=== PATIENT | male | born 1945 | race Caucasian/White ===

== ENCOUNTER 2018-05-29 12:59 | Inpatient (IN) ==
[2018-05-29] MEDS ORDERED: Morphine Sulfate Inj 2 MG/ML Vial ONE (13:07)
[2018-05-29 13:25] LABS: Baso # (Auto) 0.1 th/mm3 (0.0-0.2); Baso % (Auto) 0.8 % (0.0-2.0); Eos # (Auto) 0.3 th/mm3 (0.0-0.4); Eos % (Auto) 2.5 % (0.0-4.0); Hematocrit 43.3 % (39.0-51.0); Hemoglobin 15.1 gm/dL (13.0-17.0); Lymph # (Auto) 2.2 th/mm3 (1.0-4.8); Lymph % (Auto) 17.1 % (9.0-44.0); Mean Corpuscular HGB Conc 34.9 % (32.0-36.0); Mean Corpuscular Hemoglobin 31.6 pg (27.0-34.0); Mean Corpuscular Volume 90.5 fL (80.0-100.0); Mean Platelet Volume 8.1 fL (7.0-11.0); Mono # (Auto) 0.6 th/mm3 (0.0-0.9); Mono % (Auto) 4.7 % (0.0-8.0); Neut # (Auto) 9.8 th/mm3 (1.8-7.7); Neut % (Auto) 74.9 % (16.0-70.0); Platelet Count 179 th/mm3 (150-450); Red Blood Count 4.78 mil/mm3 (4.50-5.90); Red Cell Distribution Width 13.3 % (11.6-17.2); White Blood Count 13.1 th/mm3 (4.0-11.0)
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
--- NOTE | 2018-05-29 13:34 | XR ---
EXAM DATE: 05/29/2018 1:23 PM EDT AGE/SEX: 89 years / Male INDICATIONS: Trauma pinned under vehicle after it fell off [place]. Right side pain. CLINICAL DATA: This is the patient's initial encounter. Patient reports that signs and symptoms have been present for 1 day and indicates a pain score of 10/10. MEDICAL/SURGICAL HISTORY: None. None. COMPARISON: No prior exams available for comparison. FINDINGS: Lungs are well-expanded and clear. There is no evidence of pneumothorax. Heart and mediastinal structures are unremarkable. Fractured right clavicle is noted. Osseous structures otherwise appear intact. CONCLUSION: No evidence of acute cardiopulmonary process. Fractured right clavicle. Electronically signed by: Fortunato Lainez MD 05/29/2018 1:32 PM EDT
--- NOTE | 2018-05-29 13:35 | CT ---
EXAM DATE: 05/29/2018 1:31 PM EDT AGE/SEX: 89 years / Male INDICATIONS: Trauma alert, car fell on patient while working underneath. CLINICAL DATA: This is the patient's initial encounter. Patient reports that signs and symptoms have been present for 1 day and indicates a pain score of 4/10. MEDICAL/SURGICAL HISTORY: . unable to obtain . unable to obtain RADIATION DOSE: 56.35 CTDI (mGy) COMPARISON: No prior exams available for comparison. TECHNIQUE: CT of the head without contrast. Using automated exposure control and adjustment of the mA and/or kV according to patient size, radiation dose was kept as low as reasonably achievable to ob tain optimal diagnostic quality images. DICOM format image data is available electronically for revi ew and comparison. FINDINGS: Cerebrum: The ventricles are normal for age. No evidence of midline shift, mass lesion, hemorrhage or acute infarction. No extraaxial fluid collections are seen. Posterior Fossa: The cerebellum and brainstem are intact. The 4th ventricle is midline. The cerebe llopontine angle is unremarkable. Extracranial: The visualized portion of the orbits is intact. Skull: The calvaria is intact. No evidence of skull fracture. CONCLUSION: 1. Negative for acute process Electronically signed by: Ravi Hoffman MD 05/29/2018 1:34 PM EDT
[2018-05-29 13:40] LABS: Activated Partial Thrombo Time 25.3 sec (24.3-30.1); INR 1.1 Ratio; Prothrombin Time 11.1 sec (9.8-11.6)
--- NOTE | 2018-05-29 13:49 | CT ---
EXAM DATE: 05/29/2018 1:33 PM EDT AGE/SEX: 89 years / Male INDICATIONS: Trauma alert, car fell on patient while working underneath. CLINICAL DATA: This is the patient's initial encounter. Patient reports that signs and symptoms have been present for 1 day and indicates a pain score of Nonresponsive. MEDICAL/SURGICAL HISTORY: Non-responsive. Non-responsive. RADIATION DOSE: 25.25 CTDI (mGy) COMPARISON: No prior exams available for comparison. TECHNIQUE: Contiguous axial images were obtained using helical multirow detector technique. The vol umetric data was post-processed with multiplanar reconstruction in oblique axial, sagittal, and coron al planes. Using automated exposure control and adjustment of the mA and/or kV according to patient s ize, radiation dose was kept as low as reasonably achievable to obtain optimal diagnostic quality lindsey ges. DICOM format image data is available electronically for review and comparison. FINDINGS: ALIGNMENT: Vertebral bodies are satisfactorily aligned without evidence of listhesis. FACET AND OSSEOUS STRUCTURES: Vertebral body height is well-maintained. There is no evidence of acut e fracture, or destructive changes. There is no significant facet arthropathy. INTERVERTEBRAL DISC SPACES: [id number] degenerative disc disease is noted. There is disc space narrowing with marginal spondylosis at C4-5 and C5-6. At C4-5 there is disc space narrowing with broad-based disc osteophyte complex. There is anterior epi dural effacement and moderate right foraminal stenosis. NEUROLOGIC STRUCTURES: The spinal cord appears normal without compression. CONCLUSION: 1. No evidence of acute traumatic soft tissue or bony injury. 2. Degenerative disc disease at C4-5 and C5-6. 3. Disc osteophyte complex at C4-5 with anterior epidural effacement and moderate right foraminal st enosis. 4. Normal-appearing spinal cord. Electronically signed by: Fortunato Lainez MD 05/29/2018 1:48 PM EDT
--- NOTE | 2018-05-29 13:52 | CT ---
EXAM DATE: 05/29/2018 1:46 PM EDT AGE/SEX: 89 years / Male INDICATIONS: Trauma alert, car fell on patient while working underneath. CLINICAL DATA: This is the patient's initial encounter. Patient reports that signs and symptoms have been present for 1 day and indicates a pain score of Nonresponsive. MEDICAL/SURGICAL HISTORY: Non-responsive. Non-responsive. RADIATION DOSE: 21.96 CTDI (mGy) COMPARISON: No prior exams available for comparison. TECHNIQUE: Contiguous images in the axial and coronal planes were obtained using helical multirow de tector technique. Using automated exposure control and adjustment of the mA and/or kV according to p atient size, radiation dose was kept as low as reasonably achievable to obtain optimal diagnostic shea lity images. DICOM format image data is available electronically for review and comparison. FINDINGS: Orbits: The orbital and infraorbital osseous structures are intact. The retroconal structures have a normal configuration. No radiopaque foreign bodies are seen. Nasal Bone: The nasal bone and maxillary spine are intact. Zygomatic Arches: Symmetric without evidence of fracture. Sinuses: Mild mucosal swelling is identified in the frontal and sphenoid sinuses. The sinuses are ot herwise clear. There are no air-fluid levels. Nasal Cavity: The nasal septum is intact and midline. The lacrimal ducts are intact. Soft Tissues: No radiopaque foreign bodies seen. No soft-tissue swelling is seen. Intracranial: No intracranial air seen. Cribriform Plate: Grossly intact. CONCLUSION: 1. Mild mucosal swelling in the paranasal sinuses. 2. No evidence of acute fracture or significant soft tissue swelling. Electronically signed by: Fortunato Lainez MD 05/29/2018 1:51 PM EDT
--- NOTE | 2018-05-29 13:55 | CT ---
EXAM DATE: 05/29/2018 1:48 PM EDT AGE/SEX: 89 years / Male INDICATIONS: Trauma alert, car fell on patient while working underneath. CLINICAL DATA: This is the patient's initial encounter. Patient reports that signs and symptoms have been present for 1 day and indicates a pain score of Nonresponsive. MEDICAL/SURGICAL HISTORY: Non-responsive. Non-responsive. RADIATION DOSE: 8.67 CTDI (mGy) ; Combined studies COMPARISON: No prior exams available for comparison. TECHNIQUE: Multiple contiguous axial images were obtained through the chest during bolus infusion of 93 ml Omnipaque 350 (iohexol) nonionic water-soluble contrast as a cumulative dose for multiple exa ms. Images were obtained in suspended respiration using multiple row detector helical technique. U sing automated exposure control and adjustment of the mA and/or kV according to patient size, radiati on dose was kept as low as reasonably achievable to obtain optimal diagnostic quality images. DICOM format image data is available electronically for review and comparison. FINDINGS: LUNGS: There is no pneumothorax. There is contusion in the right lung base with displaced fractures o f the fifth sixth seventh and eighth and ninth ribs posteriorly. There is no pneumothorax. The right lung is clear. MEDIASTINUM: There is no axillary adenopathy. Mediastinum intact without hematoma. Moderate coronary calcifications including LAD and circumflex. No pericardial effusion. Portion of liver and spleen identified are free of focal defects Review of bone windows reveals only the right rib fractures. Thoracic spine is intact. CONCLUSION: 1. Contusion right lung posteriorly without pneumothorax. 2. Multiple displaced right rib fractures involving the third through seventh ribs. Electronically signed by: Rvai Hoffman MD 05/29/2018 1:53 PM EDT
--- NOTE | 2018-05-29 13:57 | CT ---
EXAM DATE: 05/29/2018 1:48 PM EDT AGE/SEX: 89 years / Male INDICATIONS: Trauma alert, car fell on patient while working underneath. CLINICAL DATA: This is the patient's initial encounter. Patient reports that signs and symptoms have been present for 1 day and indicates a pain score of Nonresponsive. MEDICAL/SURGICAL HISTORY: Non-responsive. Non-responsive. ORAL CONTRAST: No oral contrast ingested. RADIATION DOSE: 8.67 CTDI (mGy) ; Combined studies COMPARISON: No prior exams available for comparison. TECHNIQUE: Multiple contiguous axial images were obtained through the abdomen and pelvis following b olus infusion of 93 ml Omnipaque 350 (iohexol) nonionic water-soluble contrast as a cumulative dose for multiple exams. No oral contrast ingested. Using automated exposure control and adjustment of t he mA and/or kV according to patient size, radiation dose was kept as low as reasonably achievable to obtain optimal diagnostic quality images. DICOM format image data is available electronically for r eview and comparison. FINDINGS: Lower Lungs: The visualized lower lungs are clear. Liver: The liver has a homogeneous density without space-occupying lesion. There is no dilation of th e biliary tree. Spleen: Homogeneous density without enlargement. Pancreas: Unremarkable without mass or calcification. Kidneys: Normal in size and shape. No evidence of mass or hydronephrosis. 2 simple cysts are identif ied in the left kidney. A 1.6 cm cyst is identified in the upper pole and a 1.8 cm cyst in the lower pole. Adrenal Glands: Unremarkable. Aorta: The aorta and proximal iliac vessels are grossly unremarkable without aneurysmal dilation. Bowel/Mesentery: The bowel loops are grossly unremarkable. The cecum and sigmoid colon have a normal configuration. Abdominal Wall: Intact. Retroperitoneum: No evidence of adenopathy in the retrocrural, para-aortic, or deep pelvic regions. Bladder: Contours are smooth. Reproductive Organs: No abnormal masses or calcifications seen. Inguinal: The inguinal region is unremarkable without evidence of adenopathy. Bony Structures: Degenerative disc disease and facet arthropathy is present throughout the spine. Th ere is no evidence of acute fracture. CONCLUSION: 1. No evidence of traumatic soft tissue or bony injury. 2. Simple left renal cyst. 3. Degenerative changes of the lumbar spine. Electronically signed by: Fortunato Lainez MD 05/29/2018 1:55 PM EDT
[2018-05-29] MEDS ORDERED: Morphine Sulfate Inj 2 MG/ML Vial IV.PUSH PRN (14:54)
[2018-05-29] MEDS: diazePAM 2 MG Tablet PO SCH ×2 (17:36→23:51)
[2018-05-29] MEDS: Lidocaine 5% Patch T-DERMAL SCH (17:55)
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
[2018-05-29] MEDS: Senna/Docusate Sodium 8.6/50 MG Tablet PO SCH (21:08)
[2018-05-29] MEDS: Famotidine 20 MG Tablet PO SCH (21:08)
[2018-05-30 04:52] LABS: Baso % (Auto) 0.3 % (0.0-2.0); Eos # (Auto) 0.1 th/mm3 (0.0-0.4); Eos % (Auto) 0.6 % (0.0-4.0); Hematocrit 38.9 % (39.0-51.0); Hemoglobin 13.2 gm/dL (13.0-17.0); Lymph # (Auto) 1.9 th/mm3 (1.0-4.8); Lymph % (Auto) 18.8 % (9.0-44.0); Mean Corpuscular HGB Conc 33.9 % (32.0-36.0); Mean Corpuscular Volume 91.6 fL (80.0-100.0); Mean Platelet Volume 8.1 fL (7.0-11.0); Mono # (Auto) 0.7 th/mm3 (0.0-0.9); Mono % (Auto) 7.1 % (0.0-8.0); Neut # (Auto) 7.2 th/mm3 (1.8-7.7); Neut % (Auto) 73.2 % (16.0-70.0); Platelet Count 147 th/mm3 (150-450); Red Blood Count 4.25 mil/mm3 (4.50-5.90); Red Cell Distribution Width 13.5 % (11.6-17.2); White Blood Count 9.9 th/mm3 (4.0-11.0)
[2018-05-30 05:26] LABS: Calcium 8.4 mg/dL (8.5-10.1); Carbon Dioxide 27.9 meq/L (21.0-32.0); Potassium 3.8 meq/L (3.5-5.1)
[2018-05-30] MEDS: diazePAM 2 MG Tablet PO SCH ×3 (06:15→23:31)
--- NOTE | 2018-05-30 06:48 | XR ---
EXAM DATE: 05/30/2018 6:42 AM EDT AGE/SEX: 89 years / Male INDICATIONS: Pain right clavicle and bilateral ribs, short of breath, follow up trauma CLINICAL DATA: This is the patient's subsequent encounter. Patient reports that signs and symptoms h ave been present for 2 days and indicates a pain score of 7/10. MEDICAL/SURGICAL HISTORY: . pain right clavicle and shoulder None. COMPARISON: [facility], CHEST 1V SINGLE AP, 05/29/2018. . FINDINGS: Right clavicle fracture present with multiple rib fractures. No pneumothorax or pleural effusion. Hea rt size within normal limits. CONCLUSION: Right clavicle and multiple rib fractures. No focal consolidation or effusion. Electronically signed by: Vladislav Cobb MD 05/30/2018 6:47 AM EDT
--- NOTE | 2018-05-30 07:27 | P.CONOP ---
[facility] Orthopedics Consult Note - [facility] Consult date: 05/30/18 Chief complaint: Multiple Rib Fracture, Pulmonary Contusion Narrative: This patient is a 72-year-old male who sustained multiple injuries. He was working on a car chassis. It fell on him. He presented to the emergency room as a trauma alert. He has bilateral shoulder pain and rib and sternal pain. CT scan revealed multiple rib fractures and right-sided clavicle fracture. He is currently awake and alert on the seventh floor. Pain is severe and intense with movement. Pain is improved with rest. Currently his left shoulder hurts more than the right. He had brief loss of consciousness. Review of Systems Patient denies fevers, chills, weight loss, headache, visual changes, hearing loss, chest pain, palpitations, shortness of breath, nausea, vomiting, no urinary changes, diarrhea, bowel changes, neck pain, back pain, skin rashes, weakness of extremities, easy bleeding, enlarged lymph nodes, numbness of extremities, anxiety, or depression. Patient's social history, past medical history, and family history were reviewed on chart and with patient. [facility] - History History Provided By: Patient - Medical History Medical History: Medical History (Last Updated 05/30/18 @ 07:22 by Eric Martinez MD) Hypertension Reflux gastritis Right shoulder tendinitis - Family History Family History: Family History (Last Updated 05/30/18 @ 07:23 by Eric Martinez MD) Other Family history normal - Tobacco History Second Hand Smoke Exposure: No Smoking Status: Never smoker - Alcohol History How Often Do You Have a Drink Containing Alcohol: 2 to 3 times a week - Substance Use History Substance History: No History of Abuse Medications and Allergies Active Medications: Active Medications Al Hydroxide/Mg Hydroxide (Milk Of Magnesia Liq) 30 ml PO BID [facility] Last Admin: 05/29/18 21:02 Dose: Not Given Diazepam (Valium) 2 mg PO Q8H [facility] Last Admin: 05/30/18 06:15 Dose: 2 mg Enalaprilat (Vasotec Inj) 1.25 mg IV.PUSH Q8H PRN PRN Reason: Blood pressure 180/95 Famotidine (Pepcid) 20 mg PO BID [facility] Last Admin: 05/29/18 21:08 Dose: Not Given Acetaminophen (Ofirmev Inj) 1,000 mg in 100 mls @ 400 mls/hr IV.SIG Q6H [facility] Stop: 05/30/18 09:14 Last Infusion: 05/30/18 06:15 Dose: Infused Lactulose (Lactulose Liq) 30 ml PO DAILY PRN PRN Reason: CONSTIPATION Lidocaine HCl (Lidoderm 5% Patch.12 Hr) 1 patch T-DERMAL DAILY [facility] Last Admin: 05/29/18 17:55 Dose: 1 patch Morphine Sulfate (Morphine Inj) 2 mg IV.PUSH Q3H PRN PRN Reason: BREAKTHROUGH PAIN Ondansetron HCl (Zofran Inj) 4 mg IV.PUSH Q6H PRN PRN Reason: NAUSEA OR VOMITING Oxycodone HCl (Roxicodone) 5 mg PO Q4H PRN PRN Reason: PAIN SCALE 1 TO 5 Oxycodone HCl (Roxicodone) 10 mg PO Q4H PRN PRN Reason: PAIN SCALE 6 TO 10 Patch Removal (Remove Old Patch) 1 each T-DERMAL HS [facility] Last Admin: 05/29/18 22:19 Dose: Not Given Senna/Docusate Sodium (Mariana-Colace) 1 tab PO BID [facility] Last Admin: 05/29/18 21:08 Dose: Not Given Sodium Chloride (Ns Flush) 2 ml IV.FLUSH UNSCH PRN PRN Reason: FLUSH AFTER USING IV ACCESS Allergies Allergy/AdvReac Type Severity Reaction Status Date / Time No Known Allergies Allergy Verified 05/29/18 13:55 Exam Vital signs: Vital Signs 05/29/18 13:02 05/29/18 14:15 05/29/18 14:46 Temperature Pulse Rate 84 Respiratory Rate 18 Blood Pressure 152/78 H Pulse Oximetry 100 97 98 05/29/18 18:44 05/29/18 19:09 05/29/18 19:18 Temperature Pulse Rate 90 88 Respiratory Rate 16 16 Blood Pressure 139/75 127/70 Pulse Oximetry 97 96 96 05/29/18 20:00 05/30/18 00:00 05/30/18 04:00 Temperature 97.9 F 98 F 97.8 F Pulse Rate 81 77 72 Respiratory Rate 20 20 18 Blood Pressure 164/80 H 138/69 144/74 H Pulse Oximetry 97 97 97 Intake & Output 05/29/18 05/30/18 05/30/18 18:59 06:59 18:59 Intake Total 100 / 100 680 / 680 Output Total 650 / 650 Balance 100 / 100 30 / 30 Weight 97.9 kg Intake: IV 100 / 100 200 / 200 Ofirmev Inj 1,000 mg In 100 ml 100 / 100 200 / 200 @ 400 mls/hr IV.SIG Q6H [facility] Rx# :[id number] Oral 480 / 480 Output: Urine 650 / 650 Other: # Bowel Movements 0 Narrative: Patient is a 72-year-old male. General: Awake and alert. No acute distress. Appears well-developed well- nourished Head: Normocephalic, he has multiple abrasions on his face and scalp, pupils are equal Neck: Soft, nontender, trachea midline Chest: Patient is very tender to palpation over his sternum and ribs Abdomen: Soft, nondistended Examination of right arm reveals no pain or deformity with elbow or wrist motion. He is tender to palpation of the clavicle. Skin is intact. Radial pulse is palpable. Normal capillary refill in fingers. Sensation is intact in radial, ulnar, and median nerve distributions. Art History Instructor strength is +5. No lymphadenopathy noted. Examination of left arm reveals no pain or deformity with elbow or wrist motion. He has shoulder pain with active forward flexion and abduction. He has weakness of shoulder motion. Skin is intact. Radial pulse is palpable. Normal capillary refill in fingers. Sensation is intact in radial, ulnar, and median nerve distributions. Art History Instructor strength is +5. No lymphadenopathy noted. Examination of left lower extremity reveals no pain or deformity with hip, knee , or ankle motion. Skin is intact. Sensation is intact in left foot. Dorsalis pedis pulse is palpable. Normal capillary refill and feet. Thigh and calf compartments are soft. No lymphadenopathy noted. +5 strength of ankle dorsiflexion and plantarflexion. Examination of right lower extremity reveals no pain or deformity with hip, knee , or ankle motion. Skin is intact. Sensation is intact in right foot. Dorsalis pedis pulse is palpable. Normal capillary refill and feet. Thigh and calf compartments are soft. No lymphadenopathy noted. +5 strength of ankle dorsiflexion and plantarflexion. Results - Labs Result Diagrams: 05/30/18 04:19 05/30/18 04:19 Labs: Laboratory Results - last 24 hr 05/29/18 05/29/18 05/29/18 13:01 13:01 13:01 WBC 13.1 H RBC 4.78 Hgb 15.1 POC Hgb (Calc) 15.0 Hct 43.3 POC Hct 44.0 MCV 90.5 MCH 31.6 MCHC 34.9 RDW 13.3 Plt Count 179 MPV 8.1 Neut % (Auto) 74.9 H Lymph % (Auto) 17.1 [place] % (Auto) 4.7 Eos % (Auto) 2.5 Baso % (Auto) 0.8 Neut # (Auto) 9.8 H Lymph # (Auto) 2.2 [place] # (Auto) 0.6 Eos # (Auto) 0.3 Baso # (Auto) 0.1 WBC Differential . Differential Comment Auto diff final PT 11.1 INR 1.1 APTT 25.3 POC Sodium 140 Sodium POC Potassium 3.7 Potassium POC Chloride 101 L Chloride Carbon Dioxide Anion Gap POC BUN 21 BUN Creatinine POC Creatinine 0.9 Estimated GFR POC Glucose 152 H Random Glucose Calcium Blood Type Antibody Screen 05/29/18 05/30/18 05/30/18 13:01 04:19 04:19 WBC 9.9 RBC 4.25 L Hgb 13.2 POC Hgb (Calc) Hct 38.9 L POC Hct MCV 91.6 MCH 31.0 MCHC 33.9 RDW 13.5 Plt Count 147 L MPV 8.1 Neut % (Auto) 73.2 H Lymph % (Auto) 18.8 [place] % (Auto) 7.1 Eos % (Auto) 0.6 Baso % (Auto) 0.3 Neut # (Auto) 7.2 Lymph # (Auto) 1.9 [place] # (Auto) 0.7 Eos # (Auto) 0.1 Baso # (Auto) 0.0 WBC Differential . Differential Comment Auto diff final PT INR APTT POC Sodium Sodium 140 POC Potassium Potassium 3.8 POC Chloride Chloride 103 Carbon Dioxide 27.9 Anion Gap 9 POC BUN BUN 16 Creatinine 0.85 POC Creatinine Estimated GFR 78 L POC Glucose Random Glucose 165 H Calcium 8.4 L Blood Type O Negative Antibody Screen Negative - Diagnostic results Imaging: Impressions Chest X-Ray 05/29/18 13:02 CONCLUSION: No evidence of acute cardiopulmonary process. Fractured right clavicle. Pelvis X-Ray 05/29/18 13:02 CONCLUSION: No evidence of acute traumatic bony injury Severe degenerative disc disease in the lower lumbar spine. Abdomen/Pelvis CT 05/29/18 13:07 CONCLUSION: 1. No evidence of traumatic soft tissue or bony injury. 2. Simple left renal cyst. 3. Degenerative changes of the lumbar spine. Cervical Spine CT 05/29/18 13:08 CONCLUSION: 1. No evidence of acute traumatic soft tissue or bony injury. 2. Degenerative disc disease at C4-5 and C5-6. 3. Disc osteophyte complex at C4-5 with anterior epidural effacement and moderate right foraminal stenosis. 4. Normal-appearing spinal cord. Chest CT 05/29/18 13:08 CONCLUSION: 1. Contusion right lung posteriorly without pneumothorax. 2. Multiple displaced right rib fractures involving the third through seventh ribs. Face CT 05/29/18 13:08 CONCLUSION: 1. Mild mucosal swelling in the paranasal sinuses. 2. No evidence of acute fracture or significant soft tissue swelling. Head CT 05/29/18 13:08 CONCLUSION: 1. Negative for acute process Chest X-Ray 05/30/18 06:00 CONCLUSION: Right clavicle and multiple rib fractures. No focal consolidation or effusion. Assessment and Plan - Assessment and Plan Patient sustained multiple injuries from a car chassis falling on top of him. He has a mildly displaced right clavicle fracture, left shoulder pain, and multiple rib fractures. At this point I would recommend nonsurgical treatment of his clavicle fracture. He will need to wear a sling. He should limit use of his right arm. He does have weakness of his left shoulder. He may have a muscle injury or possible rotator cuff tear. I would recommend conservative treatment at this time. He will have continued rib pain for the next 6 weeks or so until the fracture is healed. Follow-up orthopedics in 2-3 weeks for repeat x-rays of right clavicle Physical therapy consultation for gait training, nonweightbearing right arm A mid-level provider in my office (nurse practitioner or physician transition assistant) may see this patient on follow-up visits and continue to implement the objectives of this plan including: Starting or adjusting medications, injections , cast application, orthotics, brace application, physical therapy, radiological studies (including x-ray, MRI, CT, ultrasound, bone scan), vascular studies, neurologic studies, specialist consultation, and proceeding with surgical management, as appropriate.
[2018-05-30] MEDS: Famotidine 20 MG Tablet PO SCH ×2 (09:13→21:08)
[2018-05-30] MEDS: Lidocaine 5% Patch T-DERMAL SCH (09:13)
[2018-05-30] MEDS: Senna/Docusate Sodium 8.6/50 MG Tablet PO SCH ×2 (09:13→21:08)
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
[2018-05-31] MEDS: diazePAM 2 MG Tablet PO SCH ×3 (06:16→23:42)
[2018-05-31] MEDS: Lidocaine 5% Patch T-DERMAL SCH (08:09)
[2018-05-31] MEDS: Senna/Docusate Sodium 8.6/50 MG Tablet PO SCH ×2 (08:11→20:10)
[2018-05-31] MEDS: Famotidine 20 MG Tablet PO SCH ×2 (08:19→20:09)
--- NOTE | 2018-05-31 08:33 | XR ---
EXAM DATE: 05/31/2018 8:25 AM EDT AGE/SEX: 73 years / Male INDICATIONS: Respiratory status. CLINICAL DATA: This is the patient's subsequent encounter. Patient reports that signs and symptoms h ave been present for 3 days and indicates a pain score of 3/10. MEDICAL/SURGICAL HISTORY: Hypertension. Gastroesophageal reflux disease. Reflux gastritis. Rig ht shoulder tendonitis. None. COMPARISON: [facility] [place], CHEST 1V SINGLE AP, 05/30/2018. . FINDINGS: The heart is normal in size. The mediastinal contours are within normal limits. There are chronic anna earing interstitial changes throughout the parenchyma. No pleural effusion is seen. No pneumothorax i s seen. There is a smaller pleural thickening at the left lung apex. This is similar to previous exam . CONCLUSION: Chronic interstitial changes with minimal apical pleural thickening on the left. Stable compared to p revious exam. Electronically signed by: Vishnu Hoffman MD 05/31/2018 8:32 AM EDT
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
[2018-06-01] MEDS: diazePAM 2 MG Tablet PO SCH (06:02)
[2018-06-01] MEDS: Famotidine 20 MG Tablet PO SCH (09:20)
[2018-06-01] MEDS: Senna/Docusate Sodium 8.6/50 MG Tablet PO SCH (09:20)
[2018-06-01] MEDS: Lidocaine 5% Patch T-DERMAL SCH (09:20)
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
[2018-06-01] MEDS ORDERED: Enoxaparin Inj 40 MG/0.4 ML Syringe SQ SCH (12:00)
== END 2018-06-01 13:44 ==
LOC: NEPI 12:59 → NEDA 14:03 → EDBD 14:03 → N07 19:25
PROVIDERS: ADMIT Surgery; ATTEND Surgery